=== PATIENT | female | born 2000 | race Caucasian/White ===

== ENCOUNTER 2025-06-17 03:17 | Inpatient (IN) | payer OTHER ==
[2025-06-17] MEDS ORDERED: Ondansetron 4 MG/2 ML SDV IVPUSH PRN (04:07)
[2025-06-17] MEDS ORDERED: Sodium Chloride 0.9% 10 ML Syringe FLUSH PRN (04:07)
[2025-06-17] MEDS ORDERED: Nalbuphine 10 MG/1 ML Vial IVPUSH PRN (04:07)
[2025-06-17 04:25] LABS: BASOPHILS ABSOLUTE AUTO 0.0 K/mm3 (0.0-0.2); BASOPHILS PERCENT AUTO 0.3 % (0.0-1.0); EOSINOPHILS ABSOLUTE AUTO 0.1 K/mm3 (0.0-0.4); EOSINOPHILS PERCENT AUTO 1.2 % (0.0-6.0); IMMATURE GRAN ABSOLUTE AUTO 0.02 K/mm3 (0.00-0.05); IMMATURE GRAN PERCENT AUTO 0.3 % (0.0-0.4); LYMPHOCYTES ABSOLUTE AUTO 1.8 K/mm3 (1.0-4.8); LYMPHOCYTES PERCENT AUTO 30.0 % (24.0-44.0); MEAN PLATELET VOLUME 10.3 fl (9.4-12.3); MONOCYTES ABSOLUTE AUTO 0.6 K/mm3 (0.0-0.8); MONOCYTES PERCENT AUTO 10.6 % (0.0-8.0); NEUTROPHILS ABSOLUTE AUTO 3.5 K/mm3 (1.8-7.7); NEUTROPHILS PERCENT AUTO 57.6 % (41.0-71.0); NRBC ABSOLUTE 0.00 (0.00-0.02); NRBC PERCENT 0.0 % (0.0-0.2); PLATELET COUNT,PLT 168 K/mm3 (150-400); RED BLOOD CELL COUNT 3.71 M/mm3 (4.10-5.30); WHITE BLOOD CELL COUNT,WBC 6.06 K/mm3 (3.9-11.3)
[2025-06-17] MEDS: Oxytocin/0.9 % Sodium Chloride 30 UNIT/500 ML BAG IV SCH ×2 (06:40→18:09)
[2025-06-17] MEDS ORDERED: Sodium Chloride 0.9% 10 ML Syringe FLUSH SCH (09:00)
[2025-06-17] MEDS: Lactated Ringers 1,000 ML IV SCH (09:33)
[2025-06-17] MEDS ORDERED: diphenhydrAMINE 50 MG/ML SDV IVPUSH PRN (09:44)
[2025-06-17] MEDS ORDERED: ePHEDrine 50 MG/ML SDV IVPUSH PRN (09:44)
[2025-06-17] MEDS: Bupivacaine/fentaNYL/NS 100 ML Bag EPIDUR PRN (09:55)
[2025-06-17 13:52] LABS: ALANINE AMINOTRANSFERASE,ALT 22.0 U/L (14-59); ASPARTATE AMNIOTRANSFERASE,AST 24.0 U/L (15-37); BLOOD UREA NITROGEN,BUN 13.0 mg/dL (7-18); CREATININE 0.6 mg/dL (0.55-1.02); EST CRCL DRUG DOSING (CG) 135.35 mL/min; ESTIMATED GFR 128.0 mL/min (>60); LACTATE DEHYDROGENASE,LDH 167.0 U/L (81-234)
[2025-06-17 13:58] LABS: CREATININE,URINE RAND 35.0 mg/dL (30.0-125.0); PROTEIN,URINE RANDOM < 6.0 mg/dL (0.0-11.8)
[2025-06-17] MEDS: Witch Hazel Medicated Pads 40/Jar TOP PRN (19:57)
[2025-06-17] MEDS: Benzocaine/Menthol 20%-0.5% Spray 78 GM Cannister TOP PRN (19:57)
== END 2025-06-19 12:33 | disposition home or self-care (01) | DRG 807 ==
LOC: JD.OBCHECK 03:17 → JD.OB 03:21 → JD.OBCHECK 04:07 → JD.OB 04:07 → OBSVTOIN 17:47 → JD.OB 17:48
PROVIDERS: ADMIT Obstetrics & Gynecology; ATTEND Obstetrics & Gynecology
PROC: 0HQ9XZZ Repair Perineum Skin, External Approach (ICD-10-PCS; principal; 2025-06-17)
PROC: 10E0XZZ Delivery of Products of Conception, External Approach (ICD-10-PCS; principal; 2025-06-17)
PROC: 3E0R3BZ Introduction of Anesthetic Agent into Spinal Canal, Percutaneous Approach (ICD-10-PCS; principal; 2025-06-17)
DX: O70.0 First degree perineal laceration during delivery (principal); Z37.0 Single live birth; Z3A.37 37 weeks gestation of pregnancy; Z98.890 Other specified postprocedural states; Z79.899 Other long term (current) drug therapy
CPT/HCPCS: 01967; 36415; 51702; 59025; 59409; 82565; 82570; 83615; 84156; 84450; 84460; 84520; 84550; 85025; 86592; 86850; 86900; 86901; A9270-GY; J3490; J7120; J7999